=== PATIENT | female | born 1980 | race Caucasian/White ===

== ENCOUNTER 2017-08-12 17:09 | Emergency (ER) | payer OTHER, MEDICAID ==
[~2017-08-12] VITALS: Ht 157.5 cm; Wt 52.2 kg
[~2017-08-12 17:09] MED LIST: AMITRIPTYLINE H10 M3 PO; BACTRIM DS TAB1 EACH PO; CLONAZEPAM 0.50.5 M1 PO; CLONAZEPAM 1 MG1 M1 PO; CLONAZEPAM PO; DESYREL100 MG; HYDROCODONE-AP1 EAC6 PO; IBUPROFEN 600600 M1 PO; IBUPROFEN 800800 M1 PO; NAPROSYN500 MG PO; NORCO 5-325 TA1 EACH PO; PREDNISONE 5 MG5 M1; ROBAXIN500 MG PO; SALSALATE PO; TRAMADOL 50 MG50 MG PO; ULTRAM 50MG TAB50 MG PO
[2017-08-12 17:28] VITALS: BP 125/68
[2017-08-12 17:42] LABS: URINE BILIRUBIN NEGATIVE (Negative); URINE BLOOD NEGATIVE (Negative); URINE CLARITY CLEAR; URINE COLOR STRAW; URINE GLUCOSE-RANDOM NEGATIVE (Negative); URINE KETONES NEGATIVE (Negative); URINE LEUKOCYTES-REFLEX NEGATIVE (Negative); URINE NITRITE-REFLEX NEGATIVE (Negative); URINE PROTEIN NEGATIVE (Negative); URINE SPECIFIC GRAVITY <= 1.005 (1.005-1.030); URINE UROBILINOGEN 0.2 E.U./dl (0.2-1.0)
[2017-08-12] MEDS ORDERED: KEFLEX500 M1 PO (17:53)
== END 2017-08-12 18:02 | disposition home or self-care (01) ==
LOC: M.ERS 17:09
PROVIDERS: Nurse Practitioner Family
DX: L02.415 Cutaneous abscess of right lower limb (principal); F41.9 Anxiety disorder, unspecified; F10.99 Alcohol use, unspecified with unspecified alcohol-induced disorder